=== PATIENT | male | born 1950 | race Caucasian/White ===

== ENCOUNTER → 2017-03-26 | Outpatient (CLI) | payer MEDICARE, OTHER ==
[~2017-03-26] MED LIST: ASPI325T PO; COMMODE 3-IN-11 MIS; CPMMACHINE; ENOX40P SQ; FISH100020 PO; MULT-65 PO; PERC5TAB12 PO; REDCAP2 PO; WALKER WHEELS/F1 MIS
[2017-03-26 09:36] LABS: AUTOMATED NEUTROPHIL # 3.4 TH/MM3 (1.8-7.7); BASOPHIL % 0.6 % (0.0-2.0); EOSINOPHIL # 0.2 TH/MM3 (0-0.4); EOSINOPHIL % 3.6 % (0.0-4.0); HEMATOCRIT 43.7 % (39.0-51.0); HEMO FLAGS DIFF FINAL; LYMPH % 30.4 % (9.0-44.0); LYMPHOCYTE # 1.8 TH/MM3 (1.0-4.8); MEAN CELL VOLUME 92.3 FL (80.0-100.0); MEAN CORPUSCULAR HGB CONC 34.7 % (32.0-36.0); NEUT % 56.4 % (16.0-70.0); PLATELET COUNT 248 TH/MM3 (150-450); RED BLOOD COUNT 4.74 MIL/MM3 (4.50-5.90); RED CELL DISTRIBUTION WIDTH 13.4 % (11.6-17.2)
[2017-03-26 09:45] LABS: APTT (PATIENT) 24.3 SEC (24.3-30.1); INTERNATIONAL NORMALIZED RATIO 0.9 RATIO; PROTHROMBIN TIME - PATIENT 10.4 SEC (9.8-11.6)
[2017-03-26 09:53] LABS: WESTERGREN SEDIMENTATION RATE 4 mm/hr (0-20)
[2017-03-26 10:02] LABS: ALT (GPT) 28 U/L (12-78); ANION GAP 3 MEQ/L (5-15); AST (GOT) 12 U/L (15-37); BICARBONATE 29.6 MEQ/L (21.0-32.0); BLOOD UREA NITROGEN 19 MG/DL (7-18); CHLORIDE 105 MEQ/L (98-107); GLOMERULAR FILTRATION RATE 70 ML/MIN (>89); GLUCOSE,FASTING 102 MG/DL (74-99); POTASSIUM 4.9 MEQ/L (3.5-5.1); SODIUM (NA) 138 MEQ/L (136-145)
[2017-03-26 10:05] LABS: ALKALINE PHOSPHATASE 58 U/L (45-117); TOTAL BILIRUBIN ADULT 0.6 MG/DL (0.2-1.0)
[2017-03-26 11:03] LABS: BLOOD, URINE NEG (NEG); COMMENT (UR) CULT NOT INDICATED; CULTURE IF INDICATED CULT NOT INDICATED; GLUCOSE,URINE NEG (NEG); KETONE, URINE NEG (NEG); MUCUS URINE FEW /lpf (OCC); NITRITE,URINE NEG (NEG); URINE COLOR YELLOW (YELLW/STRAW)
--- NOTE | 2017-03-26 11:58 | RADRPT ---
EXAM DATE/TIME: 03/26/2017 11:18 [facility] COMPARISON: No previous studies available for comparison. INDICATIONS : Evaluate for pneumonia, pnuemothorax or communicable disease. Pre-op right knee surgery. MEDICAL HISTORY : None. SURGICAL HISTORY : None. ENCOUNTER: Initial ACUITY: 1 day PAIN SCORE: 0/10 LOCATION: Bilateral chest FINDINGS: PA and lateral views of the chest demonstrate the lungs to be symmetrically aerated without evidence of mass, infiltrate or effusion. The cardiomediastinal contours are unremarkable. Osseous structure s are intact. CONCLUSION: No acute disease. Lg Mandujano MD on March 26, 2017 at 11:56 Board Certified Radiologist. This report was verified electronically.
== END ==
LOC: CPRE 09:03
PROVIDERS: ATTEND Orthopaedic Surgery
DX: Z01.812 Encounter for preprocedural laboratory examination (principal); Z01.811 Encounter for preprocedural respiratory examination; M17.11 Unilateral primary osteoarthritis, right knee; M79.609 Pain in unspecified limb; M25.50 Pain in unspecified joint
CPT/HCPCS: 36415; 71020; 80053; 81001; 85025; 85610; 85652; 85730

== ENCOUNTER 2017-04-11 07:53 | Inpatient (IN) | payer MEDICARE, OTHER ==
[~2017-04-11] VITALS: Ht 180.3 cm; Wt 101.9 kg
[~2017-04-11 07:53] MED LIST changes: -ASPI325T PO; -COMMODE 3-IN-11 MIS; -CPMMACHINE; -ENOX40P SQ; -PERC5TAB12 PO; -WALKER WHEELS/F1 MIS
[2017-04-11 08:35] VITALS: BP 149/84; PULSE 60; RESP 20; TEMP 98.8; O2SAT 97
[2017-04-11] MEDS ORDERED: BUPIVACAINE LIPOSOME PF 1.3% 20 ML VIAL ONE (08:57)
[2017-04-11] MEDS ORDERED: SODIUM CHLORID 0.9% 500 ML IV PRN (09:00)
[2017-04-11] MEDS ORDERED: POVIDONE IODINE 7.5% SCRUB 118 ML BOTTLE TOPICAL SCH (09:00)
[2017-04-11] MEDS ORDERED: INSULIN HUMAN REGULAR 1,000 UNITS/10 ML VIAL SQ PRN (09:00)
[2017-04-11] MEDS ORDERED: VANCOMYCIN 1000 MG/NS 250 ML (for <70 kg) IV SCH ×2 (09:00)
[2017-04-11] MEDS ORDERED: ceFAZolin 2 GM PREMIX 50 ML IV SCH (09:00)
[2017-04-11] MEDS ORDERED: LACTATED RINGER'S 1000 ML IV PRN (09:00)
[2017-04-11] MEDS ORDERED: CHLORHEXIDINE GLUCONATE 2 % 1 PACK (2 CLOTHS) TOPICAL PRN (09:00)
[2017-04-11] MEDS ORDERED: METOPROLOL TARTRATE 25 MG TAB PO PRN (09:00)
[2017-04-11] MEDS ORDERED: DEXAMETHASONE SOD PHOS 20 MG/5 ML VIAL IV SCH (09:00)
[2017-04-11] MEDS ORDERED: POVIDONE IODINE 5% (ANTISEPSIS KIT) 4 APPLICATIONS EACH NARE PRN (09:00)
[2017-04-11] MEDS ORDERED: SODIUM CHLORIDE 0.9% IV SCH ×2 (10:00→15:00)
[2017-04-11] MEDS ORDERED: TRANEXAMIC ACID IV SCH ×2 (10:00→15:00)
[2017-04-11] MEDS ORDERED: ROPIVACAINE PERI-ARTICULAR INJECTION. P-ARTICULR SCH ×5 (10:00)
[2017-04-11] MEDS ORDERED: MIDAZOLAM HCL 2 MG/2 ML VIAL ONE (10:55)
[2017-04-11] MEDS ORDERED: ACETAMINOPHEN 1000 MG/100 ML VIAL IV ONE (11:11)
[2017-04-11] MEDS ORDERED: GENTAMICIN SULFATE 80 MG/2 ML VIAL ONE (11:26)
[2017-04-11] MEDS ORDERED: ONDANSETRON HCL 4 MG/2 ML VIAL IV PUSH ONE (12:00)
[2017-04-11] MEDS ORDERED: PROPOFOL 200 MG/20 ML AMP IV ONE (12:00)
[2017-04-11] MEDS ORDERED: LACTATED RINGER'S 1000 ML INJ 1,000 ML IV ONE (12:00)
--- NOTE | 2017-04-11 13:40 | PD.OP ---
cc: Adonay Abel MD Operative Report Date of Surgery: Apr 11, 2017 Preoperative Diagnosis: Right knee severe osteoarthritis Postoperative Diagnosis: Same Procedure: Right total knee arthroplasty Anesthesia: Adductor canal block and a general Surgeon: Adonay Abel Head Of Data(s): ELMER Baron The surgical procedure was assisted by my Advanced Registered Nurse Practitioner. My EVENTS SOLUTIONS CONSULTANT presence was necessary throughout this case for the manipulation and positioning of the surgical extremity. My EVENTS SOLUTIONS CONSULTANT was assisting me throughout the duration of this procedure. The skill set of an Advance Registered Nurse Practitioner was medically necessary to complete this procedure. During the surgical case, the rn neurosurgical was working at the back table and the Advance Registered Nurse Practitioner was directly assisting me. Operation and Findings: IMPLANTS: DePuy Attune: Patella: size 41. Femur, posterior stabilized size 8. Tibia, rotating platform size 8. Tibial insert, rotating platform, posterior stabilized size 5 mm thickness. ESTIMATED BLOOD LOSS: 150 cc TOURNIQUET TIME: 42 minutes at 250 mmHg pressure. JUSTIFICATION FOR PROCEDURE: The patient has end-stage osteoarthritis to the knee. There is an attached conservative measures pathway form in the chart that describes the nonoperative measures that were undertaken prior to consideration of surgical management. The patient understood the risks and benefits of surgical management. See my office notes for further details PROCEDURE: The patient was brought back to the operative theatre. Adequate anesthesia was obtained. The patient received intravenous vancomycin and Ancef. The lower extremity was prepped and draped in the usual sterile fashion.The leg was exsanguinated, the tourniquet was raised. A standard anterior incision was performed followed by medial parapatellar arthrotomy was performed. End-stage arthritis was identified. Osteotomy of the patella was performed. We drilled holes for the patella. We trialed the patella component. We placed an intramedullary guide into the distal femur. We ultimately resected 14 mm off of the distal femur in 5 degrees of valgus. The remnants of the ACL and PCL were resected. Osteotomy of the proximal tibia was performed, resecting 5 mm off of the medial side. This was done with 3 degrees of posterior slope using an extramedullary guide. The distal end of the guide was placed in the mid aspect of the ankle. The femur was sized, and four chamfer cuts were completed in 3 of external rotation. We then cut the central box in the distal femur to replace the PCL. We resected the remnants of the menisci and removed osteophytes off of the femur and tibia. We then trialed the knee. We punched the tibia for the keel, and then used standard technique to cement in components. Excess cement was removed. We trialed the knee again and the final polyethylene thickness was chosen to provide extension to 0 degrees, and flexion of 140 degrees to gravity. The ligaments were appropriately balanced. Lateral release was necessary to obtain excellent patellofemoral tracking. The tourniquet was released and adequate hemostasis was obtained. An intra- articular injection of a ropivacaine cocktail was injected. The posterior knee was inspected for excess cement, which was removed. The final polyethylene was put into position after thorough irrigation. We then closed deep fascia with a #2 Stratafix followed by skin with 2-0 Vicryl followed by enmanuel. Postop plan is to weight-bear as tolerated. DVT prophylaxis will be performed with Aylin, ZORAIDA martinez, early mobilization, and Lovenox followed by aspirin. Adonay Abel MD Apr 11, 2017 13:40
[2017-04-11] MEDS ORDERED: ASPI325T PO (13:42)
[2017-04-11] MEDS ORDERED: PERC5TAB12 PO (13:42)
[2017-04-11] MEDS ORDERED: ENOX40P SQ (13:42)
[2017-04-11] MEDS ORDERED: ONDANSETRON HCL 4 MG/2 ML VIAL IVP PRN (13:45)
[2017-04-11] MEDS ORDERED: Post-op Orders (for Pharmacy) MISC XX ONE (13:45)
[2017-04-11] MEDS ORDERED: BISACODYL 10 MG SUPP RECTAL PRN (13:45)
[2017-04-11] MEDS ORDERED: diphenhydrAMINE HCL 50 MG/ML VIAL IV PRN (13:45)
[2017-04-11] MEDS ORDERED: NALOXONE HCL 0.4 MG/ML AMP IV PRN (13:45)
[2017-04-11] MEDS ORDERED: oxyCODONE/ACETAMINOPHEN 5 MG/325 MG TAB PO PRN (13:45)
[2017-04-11] MEDS ORDERED: MAGNESIUM HYDROXIDE SUSP 30 ML CUP PO PRN (13:45)
[2017-04-11] MEDS ORDERED: SODIUM CHLORIDE 0.9% FLUSH 5 ML FLUSH IVF PRN (13:45)
[2017-04-11] MEDS ORDERED: MORPHINE SULFATE 4 MG/ML INJ IV PUSH PRN (13:45)
[2017-04-11] MEDS ORDERED: ALUMINUM/MAGNESIUM/SIMETH 30 ML CUP PO PRN (13:45)
[2017-04-11] MEDS ORDERED: DO NOT ADM ANY ANTICOAGULANT DRUGS PRN (14:00)
[2017-04-11] MEDS ORDERED: fentaNYL CITRATE 250 MCG/5 ML AMP ONE (14:15)
[2017-04-11] MEDS ORDERED: *morphine SULFATE 8 MG/ML PERIprocedure ONLY ONE ×3 (14:17→14:58)
--- NOTE | 2017-04-11 14:40 | RADRPT ---
EXAM DATE/TIME: 04/11/2017 14:25 [facility] COMPARISON: No previous studies available for comparison. INDICATIONS : Post op, right knee replacement. MEDICAL HISTORY : None. SURGICAL HISTORY : None. ENCOUNTER: Initial ACUITY: 1 day PAIN SCORE: Non-responsive. LOCATION: Right knee FINDINGS: Total knee arthroplasty is in place. The femoral, tibial, and patellar components appear intact. Th ere are no signs of loosening or fracture. CONCLUSION: Intact total knee arthroplasty for technique. RamirezSusan Puentes MD on April 11, 2017 at 14:38 Board Certified Radiologist. This report was verified electronically.
[2017-04-11] MEDS: SODIUM CHLOR 0.9% 1000 ML INJ 1,000 ML IV SCH ×2 (15:00→23:37)
--- NOTE | 2017-04-11 15:18 | HHI.DCPOC ---
Discharge Care Plan Diagnosis: (1) Primary localized osteoarthrosis, lower leg (2) Status post total knee replacement, right Your Health Problems Are: Difficulty with ADL Goals to Promote Your Health * To prevent worsening of your condition and complications * To maintain your health at the optimal level Directions to Meet Your Goals Take your medications as prescribed Follow your dietary instruction Follow activity as directed Keep your appointments as scheduled Take your immunizations and boosters as scheduled If your symptoms worsen call your PCP, if no PCP go to Urgent Care Center or Emergency Room Smoking is Dangerous to Your Health. Avoid second hand smoke Call the 24-hour hour crisis hotline for domestic abuse at Emir Hidalgo Apr 11, 2017 15:18
--- NOTE | 2017-04-11 15:19 | HHI.FF ---
Face to Face Verification Diagnosis: (1) Primary localized osteoarthrosis, lower leg (2) Status post total knee replacement, right Physical Therapy Gait training, Transfer training, bed to chair Knee: Total knee Right LE Weight Bearing: WB as tolerated Right LE Range of Motion: Active ROM Nursing Nursing: Damian teaching, Dressing changes Dressing Changes: Daily dressing change I have seen patient Van Worrell on 04/11/17. My clinical findings support the need for the requested home health care services because: Limited ability to care for self High risk of falls I certify that my clinical findings support that this patient is homebound because: Post-op weakness Unsteady gait/balance Emir Hidalgo Apr 11, 2017 15:18
[2017-04-11] MEDS ORDERED: COMMODE 3-IN-11 MIS (15:20)
[2017-04-11] MEDS ORDERED: WALKER WHEELS/F1 MIS (15:20)
[2017-04-11] MEDS ORDERED: CPMMACHINE (15:20)
[2017-04-11] MEDS ORDERED: *ONDANSETRON 4 MG VIAL PERIprocedural Use ONLY ONE (16:06)
[2017-04-11] MEDS ORDERED: ZOLPIDEM TARTRATE 5 MG TAB PO PRN (21:00)
[2017-04-11] MEDS: SODIUM CHLORIDE 0.9% FLUSH 5 ML FLUSH IVF SCH (21:12)
[2017-04-11 21:35] VITALS: BP 141/79; PULSE 60; RESP 18; TEMP 98.7; O2SAT 97
[2017-04-12 00:28] VITALS: BP 126/69; PULSE 62; RESP 18; TEMP 96.4; O2SAT 95
[2017-04-12 03:41] VITALS: BP 120/64; PULSE 64; RESP 18; TEMP 98.3; O2SAT 96
[2017-04-12 07:22] VITALS: BP 118/64; PULSE 74; RESP 16; TEMP 98.8; O2SAT 93
[2017-04-12] MEDS ORDERED: DEXAMETHASONE SOD PHOS 20 MG/5 ML VIAL IV ONE (07:45)
[2017-04-12] MEDS: oxyCODONE/ACETAMINOPHEN 5 MG/325 MG TAB PO PRN ×2 (08:32→12:30)
[2017-04-12] MEDS: SODIUM CHLORIDE 0.9% FLUSH 5 ML FLUSH IVF SCH (08:32)
[2017-04-12] MEDS: SODIUM CHLOR 0.9% 1000 ML INJ 1,000 ML IV SCH (09:37)
[2017-04-12 10:41] LABS: HEMATOCRIT 35.2 % (39.0-51.0); MEAN CELL VOLUME 92.7 FL (80.0-100.0); MEAN CORPUSCULAR HGB CONC 34.5 % (32.0-36.0); PLATELET COUNT 218 TH/MM3 (150-450); RED CELL DISTRIBUTION WIDTH 13.2 % (11.6-17.2); REVIEW FLAG FINAL; WHITE BLOOD COUNT 14.5 TH/MM3 (4.0-11.0)
[2017-04-12 11:31] VITALS: BP 117/70; PULSE 61; RESP 17; TEMP 98.7; O2SAT 93
--- NOTE | 2017-04-12 12:20 | PD.ORT.PN ---
Subjective Post Op Day #: 1 Subjective Remarks Patient is OOB in chair with minimal pain to the knee. Mild pain to the right thigh. Patient is ambulatory and voiding. Patient states he is ready for discharge. Objective Vitals Vital Signs Date Time Temp Pulse Resp B/P Pulse Ox O2 Delivery O2 Flow Rate FiO2 04/12/17 07:22 98.8 74 16 118/64 93 04/12/17 03:41 98.3 64 18 120/64 96 04/12/17 00:28 96.4 62 18 126/69 95 04/11/17 21:35 98.7 60 18 141/79 97 04/11/17 21:30 56 16 138/78 98 Nasal Cannula 3 04/11/17 21:00 97.5 60 16 123/58 98 Nasal Cannula 3 04/11/17 20:00 62 16 146/78 95 Nasal Cannula 3 04/11/17 19:00 66 16 142/81 96 Nasal Cannula 3 04/11/17 18:00 69 16 139/76 98 Nasal Cannula 3 04/11/17 17:00 67 15 141/67 97 Nasal Cannula 3 04/11/17 16:00 63 15 150/72 98 Nasal Cannula 3 04/11/17 15:30 62 15 148/81 99 Nasal Cannula 3 04/11/17 15:15 63 15 138/78 98 Nasal Cannula 3 04/11/17 15:03 15 04/11/17 15:00 65 15 145/81 99 Nasal Cannula 3 04/11/17 14:45 64 15 142/78 99 Nasal Cannula 3 04/11/17 14:43 15 04/11/17 14:30 65 14 145/74 98 Nasal Cannula 3 04/11/17 14:22 15 04/11/17 14:15 67 14 148/76 98 Nasal Cannula 3 04/11/17 14:05 97.7 66 11 150/87 97 Nasal Cannula 3 I/O 04/11/17 04/11/17 04/11/17 04/12/17 04/12/17 04/12/17 07:00 15:00 23:00 07:00 15:00 23:00 Intake Total 1200 ml 1180 ml 240 ml Output Total 50 ml 550 ml Balance 1150 ml 1180 ml -310 ml Intake Oral 480 ml 240 ml IV Total 700 ml Other 1200 ml Output Urine Total 550 ml Estimated Blood Loss 50 ml # Voids 0 # Bowel Movements 0 0 Result Diagram: 04/12/17 1019 Imaging Last 24 hours Impressions Knee X-Ray 04/11/17 1337 Signed Impressions: Service Date/Time: Tuesday, April 11, 2017 14:25 - CONCLUSION: Intact total knee arthroplasty for technique. Evangelina Puentes MD Procedures Right TKA Objective Remarks The patient's dressing is changed with no drainage. Incision is well approximated with surgical clips intact. No redness or s/s of infection. EHL/ TA/G intact. 2+ pedal pulse. Calf is soft and nontender. + SILT. Assessment & Plan Ortho Post Op Day #: 1 Problem List: Assessment and Plan POD #1: Right TKA 1. WBAT RLE 2. Lovenox followed by ASA for DVT prophylaxis 3. Ice to the right knee PRN 4. Stable for discharge home with home health today 5. F/U with Dr. Abel as ordered. Emir Hidalgo Apr 12, 2017 12:20
[2017-04-12] MEDS ORDERED: ENOXAPARIN SODIUM 40 MG/0.4 ML SYRINGE SQ SCH (13:00)
[2017-04-12] MEDS ORDERED: MULTIVITAMINS/MINERALS THERAPEUTIC TAB PO SCH (21:00)
[2017-04-12] MEDS ORDERED: DOCUSATE SODIUM 100 MG CAP PO SCH (21:00)
[2017-04-13] MEDS ORDERED: PNEUMOCOCCAL POLYVALENT INJ 25 MCG/0.5 ML SYR IM ONE (10:00)
--- NOTE | 2017-04-14 21:43 | HHI.DS ---
Discharge Summary Admission Date Apr 11, 2017 at 13:45 Discharge Date: Apr 12, 2017 Admitting Diagnosis Primary localized OA, lower leg Status post total knee replacement, right Diagnosis: (1) Primary localized osteoarthrosis, lower leg Diagnosis: Principal (2) Status post total knee replacement, right Diagnosis: Principal Procedures Right TKA Brief History This is a 66 year old male patient with severe OA of the right knee CBC/BMP: 04/12/17 1019 Significant Findings Laboratory Tests Test 04/12/17 10:19 White Blood Count 14.5 TH/MM3 (4.0-11.0) Red Blood Count 3.80 MIL/MM3 (4.50-5.90) Hemoglobin 12.1 GM/DL (13.0-17.0) Hematocrit 35.2 % (39.0-51.0) PE at Discharge The patient's dressing is changed with no drainage. Incision is well approximated with surgical clips intact. No redness or s/s of infection. EHL/ TA/G intact. 2+ pedal pulse. Calf is soft and nontender. + SILT. Hospital Course The patient was admitted to the hospital for severe OA of the right knee to have a right TKA. The patient's surgery went well without complication. The patient is WBAT. The patient is on a regular diet. The patient was placed on Lovenox followed by ASA for prophylaxis. The patient was discharged today to home with home health and will follow up in the office as scheduled with Dr. Abel. Pt Condition on Discharge: Stable Discharge Disposition: Disch w/ Home Health Serv Discharge Instructions Diet Instructions: As Tolerated, No Restrictions Activities You Can Perform: Weight Bearing as Can Activities to Avoid: Strenuous Activity Follow up Referrals: Orthopedics with Adonay Abel MD [facility]/ with NURSE FRAME BANDER - [phone] New Medications: Aspirin (Aspirin) 325 Mg Tab 325 MG PO DAILY Start Aspirin after Lovenox is completed. Prevent Blood Clot # 30 Ref 0 TAB Commode 3-in-1 (Commode 3-in-1) 1 Mis Mis 1 EA .ROUTE DIRECTED #1 Ref 0 EA CPM-Continuous Passive Motion Machine (CPM-Continuous Passive Motion Machine) 1 Ea Device 1 EA .ROUTE DIRECTED #1 Ref 0 EA Enoxaparin Inj (Lovenox Inj) 40 Mg/0.4 Ml Syr 40 MG SQ DAILY Start Aspirin after Lovenox is completed. Blood Clot Prevention # 10 Ref 0 SYRINGE Oxycodone-Acetaminophen (Percocet) 5-325 mg Tab 1-2 TAB PO Q4H PRN PAIN #60 Ref 0 TAB Walker with Front Wheels (Walker with Front Wheels) 1 Mis Mis 1 EA .ROUTE DIRECTED #1 Ref 0 EA Continued Medications: Multiple Vitamin (Multi-Vitamin Daily) 1 Tab Tab 1 TAB PO DAILY Nutritional Supplement Ref 0 TAB Red Yeast Rice Extract (Red Yeast Rice) 600 Mg Cap 600 CAP PO DAILY Discontinued Medications: Spencer-3 Fatty Acids (Fish Oil 1000 mg) 1 Cap Cap 1 CAP PO DAILY Emir Hidalgo Apr 14, 2017 21:43
== END 2017-04-12 15:32 | disposition home health service (06) | DRG 470 ==
LOC: HSDC 07:53 → EDSTATUS 11:30 → HSDI 13:45 → N06B 21:43
PROVIDERS: ADMIT Orthopaedic Surgery; ATTEND Orthopaedic Surgery
PROC: 0SRC0J9 Replacement of Right Knee Joint with Synthetic Substitute, Cemented, Open Approach (ICD-10-PCS; principal; 2017-04-11 11:39)
DX: M17.11 Unilateral primary osteoarthritis, right knee (principal); Z85.46 Personal history of malignant neoplasm of prostate; Z92.3 Personal history of irradiation
CPT/HCPCS: 73560; 85027; 86850; 86900; 86901; C1776; C9290; J0131; J0171; J0690; J0735; J1100; J1580; J1650; J1885; J2250; J2270; J2405; J2795; J3010; J3370; J7030; J7050; J7120; L1830